=== PATIENT | female | born 2000 | race Two or more races ===

== ENCOUNTER 2023-04-05 11:02 | Emergency (ER) | payer OTHER ==
[~2023-04-05] VITALS: Ht 175.3 cm; Wt 74.8 kg
[2023-04-05] MEDS ORDERED: LEVOXYL25 MCG PO (11:47)
[2023-04-05] MEDS ORDERED: INTEGRA PLUS C1 EACH PO (11:47)
[2023-04-05] MEDS ORDERED: LOVENOX40 MG/0.4 SUBCUTANEO (11:48)
[2023-04-05] MEDS ORDERED: CHILDREN'S ASPI81 MG PO (11:48)
[2023-04-05 12:54] LABS: HEMATOCRIT 38.6 % (36.0-45.00); HEMOGLOBIN 12.6 g/dL (12.0-15.00); MEAN CELL VOLUME 90.6 fL (80.00-100.00); MEAN CORPUSCULAR HEMOGLOBIN 29.5 pg (27.00-32.0); MEAN CORPUSCULAR HGB CONC 32.6 g/dl (32.0-36.0); PLATELET COUNT 311 K/uL (150-450); RED BLOOD COUNT 4.27 M/uL (4.00-6.00); RED CELL DISTRIBUTION WIDTH 14.6 % (11.5-14.5)
[2023-04-05 13:22] LABS: CALCIUM 8.8 mg/dL (8.5-10.1); CREATININE SERUM 0.6 mg/dL (0.55-1.02); GFR 123.88; POTASSIUM 3.8 mEq/L (3.5-5.1)
== END 2023-04-05 14:57 | disposition home or self-care (01) ==
LOC: ER 11:03
PROVIDERS: General Practice
DX: J06.9 Acute upper respiratory infection, unspecified (principal); Z20.822 Contact with and (suspected) exposure to COVID-19

== ENCOUNTER 2023-08-09 13:11 | Inpatient (IN) | payer OTHER ==
[~2023-08-09] VITALS: Ht 175.3 cm; Wt 83.9 kg
[~2023-08-09 13:11] MED LIST: CHILDREN'S ASPI81 MG PO; INTEGRA PLUS C1 EACH PO; LEVOXYL25 MCG PO; LOVENOX40 MG/0.4 SUBCUTANEO
[2023-08-09] MEDS ORDERED: PRENA1 TRUE CO1 EACH PO (13:44)
--- NOTE | 2023-08-09 14:11 | NUR ---
SE RECIBE PTE ALERTA Y ORIENTADA X3, LA MISMA REFIERE VENIR DE OFICINA DE DR. AGUILAR DEBIDO A QUE PRESENTO PRESIONES Y PULSO ELEVADO RITA ELDER VISITA. SE MARTHA VITALES Y SE REALZIA EKG, SE PRESENTA A DR. RUCKER QUIEN REFIERE UBICAR A LA PTE EN SECFCION K. SE UBICA A PTE Y SE CONECTA A MONITOR CARDIACO.
[2023-08-09] MEDS ORDERED: RINGERS SOLUTION,LACTATED 500 ML IV ONE (15:15)
--- NOTE | 2023-08-09 15:22 | NUR ---
SE EDUCA A PTE SOBRE TX MEDICO ESTA REFIERE ENTENDER, SE MARTHA MUESTRAS DE LABORATORIO UTILIZANDO MEDIDAS ASEPTICAS. SE COLOCA H/L YAMILKA DE EDEMA. SE COLOCA IV FLUIDS A PTE. PTE CONECTADA A MONITOR CARDIACO CON OXIMETRIA CONTINUA EN COMPANIA DE FAMILIAR.
[2023-08-09 15:41] LABS: URINE APPEARANCE Cloudy; URINE BILIRRUBIN Negative (NEGATIVE); URINE BLOOD Negative; URINE COLOR Yellow; URINE LEUKOCYTE Small; URINE NITRATE Negative; URINE PROTEIN Negative (NEGATIVE); URINE UROBILINOGEN 0.2 E.U./dl
[2023-08-09 15:44] LABS: URINE BACTERIA 3918.5 uL (0.0-1933); URINE EPITHELIAL CELLS 185.9 uL (0.0-38.8); URINE RBC 8.3 uL (0.0-20.8)
[2023-08-09 15:48] LABS: HEMATOCRIT 36.3 % (36.0-45.00); HEMOGLOBIN 12.1 g/dL (12.0-15.00); MEAN CELL VOLUME 89.1 fL (80.00-100.00); MEAN CORPUSCULAR HEMOGLOBIN 29.6 pg (27.00-32.0); MEAN CORPUSCULAR HGB CONC 33.2 g/dl (32.0-36.0); PLATELET COUNT 299 K/uL (150-450); RED BLOOD COUNT 4.08 M/uL (4.00-6.00); RED CELL DISTRIBUTION WIDTH 13.8 % (11.5-14.5)
[2023-08-09 15:57] LABS: URINE GLUCOSE 250 MG/DL (NEGATIVE)
[2023-08-09 16:07] LABS: INR < 0.93; PARTIAL THROMBOPLASTIN TIME 29.3 SECONDS (22.0-34.0); PROTHROMBIN TIME 9.8 SECONDS (9.0-11.5)
[2023-08-09 16:08] LABS: ALBUMIN 2.9 gm/dL (3.4-5.0); BILIRUBIN TOTAL 0.14 mg/dL (0.3-1.2); CREATININE SERUM 0.57 mg/dL (0.55-1.02); GFR 130.31; GLOBULINA 4.2 G/DL (2.4-3.5); POTASSIUM 3.94 mEq/L (3.5-5.1); TOTAL PROTEIN 7.1 gm/dL (6.4-8.2); TSH 3.18 uIU/mL (0.358-3.74)
[2023-08-09] MEDS ORDERED: CEFAZOLIN SODIUM 1,000 MG VIAL IV STA (18:17)
[2023-08-09] MEDS ORDERED: RINGERS SOLUTION,LACTATED 1,000 ML IV SCH (18:30)
[2023-08-09] MEDS ORDERED: ACETAMINOPHEN 500 MG GEL..CAP PO ONE (19:15)
[2023-08-09] MEDS ORDERED: OSELTAMIVIR PHOSPHATE 75 MG CAPSULE PO SCH (19:15)
[2023-08-09] MEDS ORDERED: ENOXAPARIN SODIUM 40 MG/0.4 ML SYRINGE SUBCUTANEO SCH (21:00)
[2023-08-10] MEDS ORDERED: CEFAZOLIN SODIUM 1,000 MG VIAL IV SCH
[2023-08-10] MEDS ORDERED: GUAIFENESIN 100 MG/5 ML BLIST.PACK PO SCH (02:50)
[2023-08-10] MEDS ORDERED: hydrOXYzine PAMOATE 50 MG CAPSULE PO ONE ×2 (02:50→03:00)
[2023-08-10] MEDS ORDERED: LEVOTHYROXINE SODIUM 25 MCG TABLET PO SCH (06:00)
[2023-08-10] MEDS ORDERED: ACETAMINOPHEN 500 MG GEL..CAP PO ONE (06:57)
[2023-08-10] MEDS ORDERED: ACETAMINOPHEN 500 MG GEL..CAP PO PRN (07:30)
[2023-08-10] MEDS ORDERED: IRON FUM,PS/FOLIC/BCOMP,C NO.9 1 CAP CAPSULE PO SCH (09:00)
[2023-08-10] MEDS ORDERED: PNV,CALCIUM 72/IRON/FOLIC ACID 1 TAB TABLET PO SCH (09:00)
[2023-08-10] MEDS ORDERED: ASPIRIN 81 MG TABLET.EC PO SCH (09:00)
[2023-08-10 09:51] LABS: ABG PH 7.428 (7.35-7.45); ABG PO2 121.8 mmHg (80-100); ABG pCO2 31.5 mmHg (35-45); BASE EXCESS -2.9 mmol/l; BICARBONATE 20.3 mmol/l (23-25); SaO2 98.8 %; Tco2 21.3 mmol/l
[2023-08-10 09:53] LABS: allen test SATISFACTORY; o2 21 %; puncture site RADIAL RIGHT
[2023-08-11] MEDS ORDERED: OSELTAMIVIR PHOSPHATE 75 MG CAPSULE PO SCH (12:06)
[2023-08-11] MEDS ORDERED: CEFUROXIME AXETIL 250 MG TABLET PO SCH (12:07)
[2023-08-11] MEDS ORDERED: ENOXAPARIN SODIUM 40 MG/0.4 ML SYRINGE SUBCUTANEO SCH (12:07)
== END 2023-08-11 13:18 | disposition home or self-care (01) | DRG 833 ==
LOC: ER 13:11 → SEC-K 17:27 → LDR 17:27 → O/R 08-11 13:16 → LDR 08-11 13:17
PROVIDERS: Nurse Practitioner Family; ADMIT Specialist; ATTEND Specialist
PROC: 8E0ZXY6 Isolation (ICD-10-PCS; principal; 2023-08-09)
PROC: B246ZZZ Ultrasonography of Right and Left Heart (ICD-10-PCS; 2023-08-09)
PROC: 4A033R1 Measurement of Arterial Saturation, Peripheral, Percutaneous Approach (ICD-10-PCS; 2023-08-09)
DX: O26.893 Other specified pregnancy related conditions, third trimester (principal); R07.9 Chest pain, unspecified; Z3A.31 31 weeks gestation of pregnancy; Z20.822 Contact with and (suspected) exposure to COVID-19; J10.1 Influenza due to other identified influenza virus with other respiratory manifestations

== ENCOUNTER 2023-09-05 22:31 | Outpatient (CLI) | payer OTHER ==
[~2023-09-05 22:31] MED LIST changes: +PRENA1 TRUE CO1 EACH PO
[2023-09-05] MEDS ORDERED: NIFEDIPINE 30 MG TAB.SA.OSM PO SCH (22:45)
[2023-09-05] MEDS ORDERED: ENOXAPARIN SODIUM 40 MG/0.4 ML SYRINGE SUBCUTANEO ONE (22:45)
[2023-09-05] MEDS ORDERED: RINGERS SOLUTION,LACTATED 1,000 ML IV SCH (22:45)
[2023-09-05] MEDS ORDERED: hydrOXYzine PAMOATE 50 MG CAPSULE PO ONE (22:45)
[2023-09-06 00:10] LABS: URINE APPEARANCE Clear; URINE BILIRRUBIN Negative (NEGATIVE); URINE BLOOD Negative; URINE COLOR Yellow; URINE GLUCOSE Negative (NEGATIVE); URINE LEUKOCYTE Negative; URINE NITRATE Negative; URINE PROTEIN Trace (NEGATIVE)
[2023-09-06 00:11] LABS: HEMATOCRIT 32.7 % (36.0-45.00); MEAN CELL VOLUME 89.6 fL (80.00-100.00); MEAN CORPUSCULAR HEMOGLOBIN 30.2 pg (27.00-32.0); MEAN CORPUSCULAR HGB CONC 33.7 g/dl (32.0-36.0); PLATELET COUNT 258 K/uL (150-450); RED BLOOD COUNT 3.64 M/uL (4.00-6.00); RED CELL DISTRIBUTION WIDTH 14.5 % (11.5-14.5)
[2023-09-06 00:13] LABS: URINE BACTERIA 1501.8 uL (0.0-1933); URINE EPITHELIAL CELLS 59.3 uL (0.0-38.8); URINE RBC 3.8 uL (0.0-20.8); URINE WBC 25.3 uL (0.0-23.2)
[2023-09-06 00:54] LABS: URINE CRYSTALS MANY /HPF
== END 2023-09-06 12:12 | disposition home or self-care (01) ==
LOC: OBS/DEL 22:31
PROVIDERS: ATTEND Specialist
DX: O36.8130 Decreased fetal movements, third trimester, not applicable or unspecified (principal); Z3A.35 35 weeks gestation of pregnancy; T14.90XA Injury, unspecified, initial encounter; W19.XXXA Unspecified fall, initial encounter; Y93.9 Activity, unspecified; Y92.9 Unspecified place or not applicable

== ENCOUNTER 2023-09-24 04:33 | Inpatient (IN) | payer OTHER ==
[~2023-09-24] VITALS: Ht 175.3 cm; Wt 3.2 kg
[2023-09-24] MEDS ORDERED: CEFAZOLIN SODIUM 1,000 MG VIAL IV SCH ×2 (05:15→12:00)
[2023-09-24] MEDS ORDERED: RINGERS SOLUTION,LACTATED 500 ML IV SCH (05:15)
[2023-09-24] MEDS ORDERED: ERYTHROMYCIN BASE 3.5 GM OINT...G. OP ONE (08:25)
[2023-09-24] MEDS ORDERED: OXYTOCIN 10 UNITS/ML VIAL IV ONE (10:30)
[2023-09-24] MEDS ORDERED: CARBOPROST TROMETHAMINE 250 MCG/ML AMPUL IM ONE (10:30)
[2023-09-24] MEDS ORDERED: ERYTHROMYCIN BASE 1 GM TUBE OP ONE (10:30)
[2023-09-24] MEDS ORDERED: MEPERIDINE HCL/PF 50 MG,MEPERIDINE HCL/PF 25 MG IM SCH (10:45)
[2023-09-24] MEDS ORDERED: PROMETHAZINE HCL 25 MG/ML AMPUL ONE ×2 (11:45→11:51)
[2023-09-24] MEDS ORDERED: CEFAZOLIN SODIUM 1,000 MG VIAL ONE (11:45)
[2023-09-24] MEDS ORDERED: PROMETHAZINE HCL 25 MG/ML AMPUL IV SCH (12:00)
[2023-09-25 07:33] LABS: HEMATOCRIT 31.5 % (36.0-45.00); HEMOGLOBIN 10.7 g/dL (12.0-15.00); MEAN CELL VOLUME 86.6 fL (80.00-100.00); MEAN CORPUSCULAR HEMOGLOBIN 29.3 pg (27.00-32.0); MEAN CORPUSCULAR HGB CONC 33.8 g/dl (32.0-36.0); PLATELET COUNT 265 K/uL (150-450); RED BLOOD COUNT 3.64 M/uL (4.00-6.00); RED CELL DISTRIBUTION WIDTH 14.9 % (11.5-14.5)
[2023-09-25] MEDS ORDERED: ENOXAPARIN SODIUM 40 MG/0.4 ML SYRINGE SUBCUTANEO STA (08:51)
[2023-09-25] MEDS ORDERED: OxyCODONE HCL/APAP UD (PERCOCET) PO PRN (09:00)
[2023-09-26] MEDS ORDERED: LEVOTHYROXINE SODIUM 25 MCG TABLET PO SCH (06:00)
[2023-09-26] MEDS ORDERED: ENOXAPARIN SODIUM 40 MG/0.4 ML SYRINGE SUBCUTANEO SCH ×2 (09:00→15:15)
[2023-09-27] MEDS ORDERED: LEVOTHYROXINE SODIUM 25 MCG TABLET PO SCH (09:00)
== END 2023-09-26 15:53 | disposition home or self-care (01) | DRG 788 ==
LOC: LDR 04:33 → OB/GYN 04:33 → O/R 08:59 → OB/GYN 10:24 → O/R 11:33 → OB/GYN 13:41
PROVIDERS: ADMIT Specialist; ATTEND Specialist
PROC: 4A1HXCZ Monitoring of Products of Conception, Cardiac Rate, External Approach (ICD-10-PCS; 2023-09-24)
PROC: 10D00Z1 Extraction of Products of Conception, Low, Open Approach (ICD-10-PCS; principal; 2023-09-24 09:45)
DX: O69.89X0 Labor and delivery complicated by other cord complications, not applicable or unspecified (principal); O99.284 Endocrine, nutritional and metabolic diseases complicating childbirth; E03.9 Hypothyroidism, unspecified; Z3A.38 38 weeks gestation of pregnancy; Z37.0 Single live birth; Z20.822 Contact with and (suspected) exposure to COVID-19